=== PATIENT | female | born 1985 | race Caucasian/White ===

== ENCOUNTER 2018-09-17 20:16 | Emergency (ER) | payer OTHER ==
[~2018-09-17] VITALS: Ht 175.3 cm; Wt 143.0 kg
[~2018-09-17 20:16] MED LIST: LISD50CA3 PO; METF500T16 PO; METH-37 PO; NAPR-514 PO; NITR100C62 PO; OMEP20CA9 PO
[2018-09-17 21:27] VITALS: BP 121/76
--- NOTE | 2018-09-17 21:37 | PHYS DOC ---
Past History Past Medical History: GERD Past Surgical History: Appendectomy, Other Smoking: Non-smoker Alcohol Use: None Drug Use: None Adult General Chief Complaint Chief Complaint: COUGH [facility] HPI 32-year-old female presents with 2 week history of cough and congestion. She presents tonight because she has had some upper abdominal pain/chest pain that started about 2 and half hours prior to arrival. She describes it as a pinching sensation. It is worse with deep breathing. It is mild without breathing and moderate with breathing. She denies shortness of breath or diaphoresis. She's never had pain like this before so she was concerned came to the emergency room. She has not had a fever at home. She has been coughing quite a bit. She denies any previous cardiac history. Review of Systems Review of Systems Constitutional: Denies fever or chills [] Eyes: Denies change in visual acuity, redness, or eye pain [] HENT: Denies nasal congestion or sore throat [] Respiratory: Cough without shortness of breath [] Cardiovascular: No additional information not addressed in HPI [] GI: Epigastric abdominal pain. No nausea, vomiting, bloody stools or diarrhea [] : Denies dysuria or hematuria [] Musculoskeletal: Denies back pain or joint pain [] Integument: Denies rash or skin lesions [] Neurologic: Denies headache, focal weakness or sensory changes [] Endocrine: Denies polyuria or polydipsia [] All other systems were reviewed and found to be within normal limits, except as documented in this note. Allergies Allergies Allergies Coded Allergies Type Severity Reaction Last Updated Verified lamotrigine Allergy Unknown RASH 04/06/15 Yes amoxicillin Adverse Reaction Intermediate Diarrhea 04/06/15 Yes ampicillin Adverse Reaction Intermediate DIARRHEA 04/06/15 Yes clavulanic acid Adverse Reaction Intermediate Diarrhea 04/06/15 Yes Physical Exam Physical Exam Constitutional: Well developed, obese, well nourished, no acute distress, non- toxic appearance. [] HENT: Normocephalic, atraumatic, bilateral external ears normal, oropharynx moist, no oral exudates, nose normal. [] Eyes: PERRLA, EOMI, conjunctiva normal, no discharge. [] Neck: Normal range of motion, no tenderness, supple, no stridor. [] Cardiovascular:Heart rate regular rhythm, no murmur [] Lungs & Thorax: Bilateral breath sounds clear to auscultation [] Abdomen: Bowel sounds normal, soft, no tenderness, no masses, no pulsatile masses. [] Skin: Warm, dry, no erythema, no rash. [] Back: No tenderness, no CVA tenderness. [] Extremities: No tenderness, no cyanosis, no clubbing, ROM intact, no edema. [] Neurologic: Alert and oriented X 3, normal motor function, normal sensory function, no focal deficits noted. [] Psychologic: Affect normal, judgement normal, mood normal. [] EKG EKG Sinus rhythm, rate 72, normal axis, no ST elevation or depression.[] Radiology/Procedures Radiology/Procedures [] Impressions: Examination: CHEST PA LATERAL History: Cough, epigastric pain Comparison/Correlation: 04/06/2016 two-view chest x-ray exam Findings: PA and lateral views of chest were obtained. Heart size and pulmonary vasculature are normal. No infiltrate or pleural effusion. No pneumothorax. Bony structures are unremarkable. Surgical clips involve the upper abdomen. Impression: No active disease. Electronically signed by: Alee Murrieta MD (09/17/2018 9:35 PM) [facility] DICTATED AND SIGNED BY: ALEE MURRIETA MD DATE: 09/17/182133 CC: WENDY VU DO; PCP,NO ~ Course & Med Decision Making Course & Med Decision Making Pertinent Labs and Imaging studies reviewed. (See chart for details) Patient's chest x-ray is unremarkable. Her labs are unremarkable. Her troponin is negative. Her EKG is unremarkable. The patient just having some musculoskeletal discomfort with coughing. She is stable for discharge at this time. [] Dragon Disclaimer Dragon Disclaimer This electronic medical record was generated, in whole or in part, using a voice recognition dictation system. Departure Departure: Impression: Primary Impression: Viral URI with cough Additional Impression: Chest wall pain Disposition: HOME, SELF-CARE Condition: STABLE Referrals: PCP,RASHIDA (PCP) Patient Instructions: Chest Wall Pain, [id number], Upper Respiratory Infection, Adult, [id number] Problem Qualifiers WENDY VU DO Sep 17, 2018 21:37
[2018-09-17 21:46] LABS: BASO % 1 % (0-3); EOS # 0.5 x10^3/uL (0.0-0.7); EOS % 5 % (0-3); HEMATOCRIT 35.8 % (36.0-47.0); HEMOGLOBIN 11.6 g/dL (12.0-15.5); LYMPH # 3.8 x10^3/uL (1.0-4.8); LYMPH % 42 % (24-48); MEAN CORPUSCULAR HEMOGLOBIN 26 pg (25-35); MEAN CORPUSCULAR HGB CONC 33 g/dL (31-37); MEAN CORPUSCULAR VOLUME 80 fL (79-100); MONO # 0.5 x10^3/uL (0.0-1.1); MONO % 6 % (0-9); NEUT # 4.2 x10^3uL (1.8-7.7); NEUT % 46 % (31-73); PLATELET COUNT 393 x10^3/uL (140-400); RED BLOOD COUNT 4.45 x10^6/uL (3.50-5.40); RED CELL DISTRIBUTION WIDTH 14.3 % (11.5-14.5); WHITE BLOOD COUNT 9.1 x10^3/uL (4.0-11.0)
[2018-09-17 22:02] LABS: ALBUMIN 3.6 g/dL (3.4-5.0); ALBUMIN/GLOBULIN RATIO 0.8 (1.0-1.7); CALCIUM 9.4 mg/dL (8.5-10.1); CREATININE 0.7 mg/dL (0.6-1.0); POTASSIUM 3.8 mmol/L (3.5-5.1); TOTAL BILIRUBIN 0.2 mg/dL (0.2-1.0); TOTAL PROTEIN 8.1 g/dL (6.4-8.2)
--- NOTE | 2018-09-19 15:59 | EKG ---
[address] [address] Test Date: 2018-09-17 Test Time: 20:25:39 Pat Name: ALISHA CANELA Department: Room: Gender: F Optics Engineer: : 1985 Requested By: WENDY VU Order Number: [id number] Reading MD: Measurements Intervals [place] Rate: 72 P: 47 GA: 164 QRS: 63 QRSD: 90 T: 42 QT: 382 QTc: 420 Interpretive Statements SINUS RHYTHM QRS(T) CONTOUR ABNORMALITY CONSIDER ANTEROSEPTAL MYOCARDIAL DAMAGE POSSIBLY ABNORMAL ECG RI6.01 Unconfirmed report No previous ECG available for comparison
== END 2018-09-17 22:25 | disposition home or self-care (01) ==
LOC: ER 20:16
DX: J06.9 Acute upper respiratory infection, unspecified (principal); B97.89 Other viral agents as the cause of diseases classified elsewhere; R07.89 Other chest pain; K21.9 Gastro-esophageal reflux disease without esophagitis; Z88.1 Allergy status to other antibiotic agents; Z88.8 Allergy status to other drugs, medicaments and biological substances
CPT/HCPCS: 36415; 71046; 80053; 83690; 84484; 85025; 93005; 99284

== ENCOUNTER 2019-04-28 20:34 | Emergency (ER) | payer OTHER ==
[~2019-04-28] VITALS: Ht 175.3 cm; Wt 143.0 kg
[~2019-04-28 20:34] MED LIST changes: +OMEP20CA10 PO; -OMEP20CA9 PO
[2019-04-28] MEDS ORDERED: IV NORMAL SALINE 1,000ML 1,000 ML IV SCH (21:04)
[2019-04-28] MEDS ORDERED: ONDANSETRON PF 4 MG/2 ML VIAL. IV ONE (21:15)
--- NOTE | 2019-04-28 21:26 | PHYS DOC ---
Past History Past Medical History: Anemia, UTI Past Surgical History: Appendectomy, Cholecystectomy, Gastric Bypass, Other Smoking: Non-smoker Alcohol Use: None Drug Use: None Adult General Chief Complaint Chief Complaint: ABDOMINAL PAIN HPI HPI Patient is a 33 year old female who presents with complaint of abdominal pain, nausea, and vomiting. Patient states that her symptoms started earlier this evening. Patient was seen and underwent an EGD at the [facility] location earlier today. Patient has had history of Geri-en-Y surgery with a revision surgery completed approximately 5 weeks ago. During the procedure, patient's mother notes that they stated they removed to surgical clips from her stomach but found no other significant findings at that time. Patient notes that she has been having sharp pains in her upper abdomen with nausea and vomiting. She also notes that she was found to have urinary tract infection on routine urinalysis done earlier today and states that she is prescribed an antibiotic for treatment. She has not started on this medication at this time. Notes that the pain is sharp and radiates along her upper abdomen. Denies any fever. Has not taken any medications at this time for her symptoms. Review of Systems Review of Systems Constitutional: Denies fever or chills [] Eyes: Denies change in visual acuity, redness, or eye pain [] HENT: Denies nasal congestion or sore throat [] Respiratory: Denies cough or shortness of breath [] Cardiovascular: No additional information not addressed in HPI [] GI: Denies abdominal pain, nausea, vomiting, bloody stools or diarrhea [] : Denies dysuria or hematuria [] Musculoskeletal: Denies back pain or joint pain [] Integument: Denies rash or skin lesions [] Neurologic: Denies headache, focal weakness or sensory changes [] Endocrine: Denies polyuria or polydipsia [] All other systems were reviewed and found to be within normal limits, except as documented in this note. Current Medications Current Medications Current Medications Medications (Trade) Dose Ordered Sig/Michelle Start Time Stop Time Status Last Admin Dose Admin Fentanyl Citrate (Fentanyl 2ml Vial) 50 mcg PRN Q15MIN PRN 04/28/19 21:15 04/29/19 21:14 Ondansetron HCl (Zofran) 4 mg 1X ONCE 04/28/19 21:15 04/28/19 21:16 DC Sodium Chloride 1,000 ml @ 1,000 mls/hr Q1H 04/28/19 21:04 04/28/19 22:03 Allergies Allergies Allergies Coded Allergies Type Severity Reaction Last Updated Verified acetaminophen Allergy Unknown 04/28/19 Yes codeine Allergy Unknown 04/28/19 Yes lamotrigine Allergy Unknown RASH 04/06/15 Yes tramadol Allergy Unknown 04/28/19 Yes amoxicillin Adverse Reaction Intermediate Diarrhea 04/06/15 Yes ampicillin Adverse Reaction Intermediate DIARRHEA 04/06/15 Yes clavulanic acid Adverse Reaction Intermediate Diarrhea 04/06/15 Yes Physical Exam Physical Exam Constitutional: Alert, afebrile, appears in moderate discomfort. [] HENT: Normocephalic, atraumatic, bilateral external ears normal, oropharynx moist, no oral exudates, nose normal. [] Eyes: PERRLA, EOMI, conjunctiva normal, no discharge. [] Neck: Normal range of motion, no tenderness, supple, no stridor. [] Cardiovascular:Heart rate regular rhythm, no murmur [] Lungs & Thorax: Bilateral breath sounds clear to auscultation [] Abdomen: Bowel sounds normal, soft, epigastric tenderness to palpation, mild guarding, no rebound tenderness, no masses, no pulsatile masses. [] Skin: Warm, dry, no erythema, no rash. [] Back: No tenderness, no CVA tenderness. [] Extremities: No tenderness, no cyanosis, no clubbing, ROM intact, no edema. [] Neurologic: Alert and oriented X 3, normal motor function, normal sensory function, no focal deficits noted. [] Current Patient Data Vital Signs Vital Signs Date Time Temp Pulse Resp B/P (MAP) Pulse Ox O2 Delivery O2 Flow Rate FiO2 04/28/19 20:43 99.7 83 16 100 Room Air Lab Results Laboratory Tests Test 04/28/19 20:40 04/28/19 21:30 04/28/19 21:40 Urine Collection Type Unknown Urine Color Yellow Urine Clarity Hazy Urine pH 6.0 Urine Specific [place] >=1.030 Urine Protein 30 mg/dl Urine Glucose (UA) Neg mg/dL Urine Ketones (Stick) Neg mg/dL Urine Blood Large Urine Nitrite Neg Urine Bilirubin Neg Urine Urobilinogen Dipstick 1 mg/dL Urine Leukocyte Esterase Small Urine RBC >40 /HPF Urine WBC 20-40 /HPF Urine Squamous Epithelial Cells Occ /LPF Urine Bacteria Many /HPF Urine Mucus Slight /LPF White Blood Count 7.4 x10^3/uL Red Blood Count 4.48 x10^6/uL Hemoglobin 11.1 g/dL Hematocrit 34.5 % Mean Corpuscular Volume 77 fL Mean Corpuscular Hemoglobin 25 pg Mean Corpuscular Hemoglobin Concent 32 g/dL Red Cell Distribution Width 16.6 % Platelet Count 364 x10^3/uL Neutrophils (%) (Auto) 39 % Lymphocytes (%) (Auto) 46 % Monocytes (%) (Auto) 7 % Eosinophils (%) (Auto) 8 % Basophils (%) (Auto) 1 % Neutrophils # (Auto) 2.8 x10^3uL Lymphocytes # (Auto) 3.4 x10^3/uL Monocytes # (Auto) 0.5 x10^3/uL Eosinophils # (Auto) 0.6 x10^3/uL Basophils # (Auto) 0.1 x10^3/uL Sodium Level 142 mmol/L Potassium Level 3.6 mmol/L Chloride Level 106 mmol/L Carbon Dioxide Level 25 mmol/L Anion Gap 11 Blood Urea Nitrogen 11 mg/dL Creatinine 0.7 mg/dL Estimated GFR (Cockcroft-Gault) 96.4 BUN/Creatinine Ratio 16 Glucose Level 86 mg/dL Calcium Level 9.1 mg/dL Total Bilirubin 0.3 mg/dL Aspartate Amino Transf (AST/SGOT) 18 U/L Alanine Aminotransferase (ALT/SGPT) 14 U/L Alkaline Phosphatase 117 U/L Total Protein 7.7 g/dL Albumin 3.5 g/dL Albumin/Globulin Ratio 0.8 Lipase 108 U/L Bedside Urine HCG, Qualitative hcg negative Current Medications Medications (Trade) Dose Ordered Sig/Michelle Route PRN Reason Start Time Stop Time Status Last Admin Dose Admin Fentanyl Citrate (Fentanyl 2ml Vial) 50 mcg PRN Q15MIN PRN IV PAIN GREATER THAN 3/10 04/28/19 21:15 04/29/19 21:14 04/28/19 21:46 Sodium Chloride 1,000 ml @ 1,000 mls/hr Q1H IV 04/28/19 21:04 04/28/19 22:03 DC 04/28/19 21:46 Ondansetron HCl (Zofran) 4 mg 1X ONCE IV 04/28/19 21:15 04/28/19 21:16 DC 04/28/19 21:46 Iohexol (Omnipaque 300 Mg/ml) 75 ml 1X ONCE IV 04/28/19 23:15 04/28/19 23:16 DC 04/28/19 23:29 Info (Do NOT chart on this entry -- for MONITORING) 1 each PRN DAILY PRN MC SEE COMMENTS 04/28/19 23:15 04/30/19 23:14 Ceftriaxone Sodium 1 gm/ Sodium Chloride 50 ml @ 100 mls/hr 1X ONCE IV 04/29/19 00:00 04/29/19 00:29 UNV 04/29/19 00:04 Ceftriaxone Sodium (Rocephin) 1 gm STK-MED ONCE .ROUTE 04/28/19 23:58 04/28/19 23:59 DC Sodium Chloride 50 ml @ As Directed STK-MED ONCE .ROUTE 04/28/19 23:59 04/28/19 23:59 DC EKG EKG Not performed[] Radiology/Procedures Radiology/[place] [address] IMAGING REPORT Signed PATIENT: ALISHA CANELA ACCOUNT: [id number] : 1985 LOCATION: ER AGE: 33 SEX: F EXAM STATUS: REG ER ORD. PHYSICIAN: ALEX BAUTISTA MD REASON: Abdominal pain now, endoscopy done earlier today PROCEDURE: ACUTE ABDOMEN SERIES Exam: Acute abdominal series INDICATION: Abdominal pain TECHNIQUE: Frontal view of the chest with upright and supine views of the abdomen. Comparisons: None FINDINGS: The cardiomediastinal silhouette and pulmonary vessels are within normal limits. The lung and pleural spaces are clear. Air and stool are seen throughout the colon to the level of the rectum in a nonobstructive bowel gas pattern. No free air. No suspicious masses or calcifications. Visualized osseous structures are unremarkable. IMPRESSION: 1. No acute cardiopulmonary process. 2. Nonobstructive bowel gas pattern. Electronically signed by: Wilma Rincon MD (04/28/2019 10:44 PM) [facility] DICTATED AND SIGNED BY: WILMA RINCON MD DATE: 04/28/19 5525 CC: ALEX BAUTISTA MD; KATE BUSH ~ [address] [address] IMAGING REPORT Signed PATIENT: ALISHA CANELA ACCOUNT: [id number] : 1985 LOCATION: ER AGE: 33 SEX: F EXAM STATUS: REG ER ORD. PHYSICIAN: ALEX BAUTISTA MD REASON: upper abdominal pain, hx of Geri-en-Y surgery, EGD today PROCEDURE: CT ABD PELV W/ IV CONTRST ONLY EXAM: CT ABDOMEN/PELVIS WITH CONTRAST. HISTORY: Abdominal pain after endoscopy. TECHNIQUE: Computed tomography of the abdomen and pelvis was performed after the intravenous administration of iodinated contrast. COMPARISON: 11/15/2010. FINDINGS: Lung windows through the visualized portions of the bases reveal no abnormality. Bone windows reveal no suspicious lesions. There is a bone island in the left superior acetabulum. There are changes of gastric bypass procedure. There is a small hiatal hernia. There is no small bowel obstruction. Interval gallbladder fatty infiltration is noted along the falciform ligament. The pancreas, adrenal glands, kidneys and spleen are unremarkable. A prominent mesenteric lymph node in the right lower quadrant measures 9 mm. Another is in the root of the mesentery measure up to 1.5 x 1.1 cm on image 37. There are no pathologically enlarged retroperitoneal or pelvic lymph nodes. A small amount of free pelvic fluid may be physiologic or reactive. The appendix is surgically absent. Postprocedural changes are noted within the anterior abdominal wall. There is no drainable collection. IMPRESSION: 1. Small hiatal hernia status post gastric bypass. No evidence of obstruction. 2. Prominent mesenteric lymph nodes measure up to 1.5 cm. These are likely reactive. Follow-up could be performed if there is persistent concern. *One or more of the following individualized dose reduction techniques were utilized for this examination: 1. Automated exposure control. 2. Adjustment of the mA and/or kV according to patient size. 3. Use of iterative reconstruction technique. Electronically signed by: Matt Nichols MD (04/28/2019 11:46 PM) [facility] DICTATED AND SIGNED BY: TYLER NICHOLS MD DATE: 04/28/19 8266 CC: ALEX BAUTISTA MD; KATE BUSH ~ [] Course & Med Decision Making Course & Med Decision Making Pertinent Labs and Imaging studies reviewed. (See chart for details) Patient was given IV fluids, Zofran, and fentanyl in the emergency department. Initial lab work shows evidence of urinary tract infection, however blood work appears unremarkable at this time. Patient's abdominal x-rays show no intestinal obstruction. Patient did have recurrence of pain after initial treatment with fentanyl. CT imaging was obtained which showed no sign of acute perforation or other acute findings. Patient's condition appears stable at this time. The patient was administered Compazine and Benadryl for treatment of nausea, however patient is tolerating by mouth intake at this time. The patient is appropriate for discharge and recommended outpatient follow-up in one to 2 days with her bariatric surgeon. Advised the patient to be sure to fill the antibiotic prescription that was written for her by her GI doctor and advised to continue on this at home for treatment of urinary tract infection. Was given dose of IV Rocephin in the emergency department prior to discharge. Advised return to the emergency department for any worsening symptoms. Patient and mother voiced understanding and agreement with treatment plan. Dragon Disclaimer Dragon Disclaimer This electronic medical record was generated, in whole or in part, using a voice recognition dictation system. Departure Departure: Impression: Primary Impression: Abdominal pain Additional Impressions: Nausea & vomiting Urinary tract infection Disposition: 01 HOME, SELF-CARE Condition: IMPROVED Referrals: KATE BUSH (PCP) Patient Instructions: Abdominal Pain (Nonspecific), Nausea and Vomiting Additional Instructions: Call your bariatric surgeon in the morning for follow-up in the next 1-2 days. Return to the emergency department for any worsening symptoms. Problem Qualifiers Primary Impression: Abdominal pain Abdominal location: epigastric Qualified Codes: R10.13 - Epigastric pain Additional Impressions: Nausea & vomiting Vomiting type: unspecified Vomiting Intractability: non-intractable Qualified Codes: R11.2 - Nausea with vomiting, unspecified Urinary tract infection Urinary tract infection type: site unspecified Hematuria presence: with hematuria Qualified Codes: N39.0 - Urinary tract infection, site not s pecified; R31.9 - Hematuria, unspecified ALEX BAUTISTA MD Apr 28, 2019 21:26
[2019-04-28 21:44] LABS: CLARITY,URINE HAZY; COLOR,URINE YELLOW
[2019-04-28 21:45] LABS: BACTERIA,URINE MANY /HPF (0-FEW); BILIRUBIN,URINE NEG (NEG); GLUCOSE,URINE NEG (NEG); NITRITE,URINE NEG (NEG); RBC,URINE >40 /HPF (0-2); SQUAMOUS EPITHELIAL CELL,UR OCC /LPF; UROBILINOGEN,URINE 1 mg/dL (0.2 mg/dL); WBC,URINE 20-40 /HPF (0-4)
[2019-04-28 21:51] LABS: BASO # 0.1 x10^3/uL (0.0-0.2); BASO % 1 % (0-3); EOS # 0.6 x10^3/uL (0.0-0.7); EOS % 8 % (0-3); HEMATOCRIT 34.5 % (36.0-47.0); HEMOGLOBIN 11.1 g/dL (12.0-15.5); LYMPH # 3.4 x10^3/uL (1.0-4.8); LYMPH % 46 % (24-48); MEAN CORPUSCULAR HEMOGLOBIN 25 pg (25-35); MEAN CORPUSCULAR HGB CONC 32 g/dL (31-37); MEAN CORPUSCULAR VOLUME 77 fL (79-100); MONO # 0.5 x10^3/uL (0.0-1.1); MONO % 7 % (0-9); NEUT # 2.8 x10^3uL (1.8-7.7); NEUT % 39 % (31-73); PLATELET COUNT 364 x10^3/uL (140-400); RED BLOOD COUNT 4.48 x10^6/uL (3.50-5.40); RED CELL DISTRIBUTION WIDTH 16.6 % (11.5-14.5); WHITE BLOOD COUNT 7.4 x10^3/uL (4.0-11.0)
[2019-04-28 22:04] LABS: ALBUMIN 3.5 g/dL (3.4-5.0); ALBUMIN/GLOBULIN RATIO 0.8 (1.0-1.7); CALCIUM 9.1 mg/dL (8.5-10.1); CREATININE 0.7 mg/dL (0.6-1.0); GFR 96.4; POTASSIUM 3.6 mmol/L (3.5-5.1); TOTAL BILIRUBIN 0.3 mg/dL (0.2-1.0); TOTAL PROTEIN 7.7 g/dL (6.4-8.2)
--- NOTE | 2019-04-28 22:47 | RAD ---
Exam: Acute abdominal series INDICATION: Abdominal pain TECHNIQUE: Frontal view of the chest with upright and supine views of the abdomen. Comparisons: None FINDINGS: The cardiomediastinal silhouette and pulmonary vessels are within normal limits. The lung and pleural spaces are clear. Air and stool are seen throughout the colon to the level of the rectum in a nonobstructive bowel gas pattern. No free air. No suspicious masses or calcifications. Visualized osseous structures are unremarkable. IMPRESSION: 1. No acute cardiopulmonary process. 2. Nonobstructive bowel gas pattern. Electronically signed by: Wilma Chambers MD (04/28/2019 10:44 PM) [facility]
[2019-04-28] MEDS ORDERED: CONTRAST GIVEN MC PRN (23:15)
[2019-04-28] MEDS ORDERED: IOHEXOL 300 MG/ML 75 ML VIAL. IV ONE (23:15)
--- NOTE | 2019-04-28 23:49 | RAD ---
EXAM: CT ABDOMEN/PELVIS WITH CONTRAST. HISTORY: Abdominal pain after endoscopy. TECHNIQUE: Computed tomography of the abdomen and pelvis was performed after the intravenous administration of iodinated contrast. COMPARISON: 11/15/2010. FINDINGS: Lung windows through the visualized portions of the bases reveal no abnormality. Bone windows reveal no suspicious lesions. There is a bone island in the left superior acetabulum. There are changes of gastric bypass procedure. There is a small hiatal hernia. There is no small bowel obstruction. Interval gallbladder fatty infiltration is noted along the falciform ligament. The pancreas, adrenal glands, kidneys and spleen are unremarkable. A prominent mesenteric lymph node in the right lower quadrant measures 9 mm. Another is in the root of the mesentery measure up to 1.5 x 1.1 cm on image 37. There are no pathologically enlarged retroperitoneal or pelvic lymph nodes. A small amount of free pelvic fluid may be physiologic or reactive. The appendix is surgically absent. Postprocedural changes are noted within the anterior abdominal wall. There is no drainable collection. IMPRESSION: 1. Small hiatal hernia status post gastric bypass. No evidence of obstruction. 2. Prominent mesenteric lymph nodes measure up to 1.5 cm. These are likely reactive. Follow-up could be performed if there is persistent concern. *One or more of the following individualized dose reduction techniques were utilized for this examination: 1. Automated exposure control. 2. Adjustment of the mA and/or kV according to patient size. 3. Use of iterative reconstruction technique. Electronically signed by: Matt Nichols MD (04/28/2019 11:46 PM) [facility]
[2019-04-28] MEDS ORDERED: cefTRIAXone SODIUM 1 GM VIAL ONE (23:58)
[2019-04-28] MEDS ORDERED: IV NORMAL SALINE 50ML 50 ML ONE (23:59)
[2019-04-29] MEDS ORDERED: ONDA4TAB12 PO (00:24)
[2019-04-29] MEDS ORDERED: diphenhydrAMINE 50 MG/ML VIAL IVP ONE (00:30)
[2019-04-29] MEDS ORDERED: PROCHLORPERAZINE 10 MG/2 ML VIAL. IV ONE (00:30)
[2019-04-29 00:48] VITALS: BP 120/65
== END 2019-04-29 00:50 | disposition home or self-care (01) ==
LOC: ER 20:34
DX: N39.0 Urinary tract infection, site not specified (principal); R11.2 Nausea with vomiting, unspecified; R31.9 Hematuria, unspecified; Z86.2 Personal history of diseases of the blood and blood-forming organs and certain disorders involving the immune mechanism; Z90.89 Acquired absence of other organs; Z90.49 Acquired absence of other specified parts of digestive tract; Z98.84 Bariatric surgery status; Z88.6 Allergy status to analgesic agent; Z88.5 Allergy status to narcotic agent; Z88.1 Allergy status to other antibiotic agents; Z88.8 Allergy status to other drugs, medicaments and biological substances
CPT/HCPCS: 36415; 74022; 74177; 80053; 81001; 81025; 83690; 85025; 87086; 96361; 96365; 96374; 96375; 99285; J0696; J0780; J1200; J2405; J3010; Q9967; J7030

== ENCOUNTER → 2020-09-21 | Outpatient (CLI) | payer MEDICAID, OTHER ==
[~2020-09-21] MED LIST changes: -OMEP20CA10 PO; +OMEP20CA16 PO; +ONDA4TAB12 PO
--- NOTE | 2020-09-21 15:58 | RAD ---
Nonvascular left soft tissue ultrasound INDICATION: 34-year-old woman reporting a mass in her left sided upper abdomen. COMPARISON: CT abdomen and pelvis with IV contrast of 04/28/2019 TECHNIQUE: Grayscale ultrasound of the area of patient reported palpable concern was performed with a nd without Valsalva in the longitudinal and transverse orientations. FINDINGS: Ultrasound of the area of palpable concern as reported by the patient reveals no discrete fluid colle ction or mass in the patient's abdominal wall. No change with Valsalva. IMPRESSION: Negative focused ultrasound in the area of patient's reported palpable concern with no demonstrable h ernia on Valsalva or otherwise evidence of a mass. Further imaging if indicated could be pursued with CT. Electronically signed by: Monet Delcid MD (09/21/2020 3:56 PM) [id number]
== END ==
LOC: US 08:36
PROVIDERS: ATTEND Family Medicine
DX: R19.02 Left upper quadrant abdominal swelling, mass and lump (principal)
CPT/HCPCS: 76881

== ENCOUNTER 2020-11-10 08:55 | Emergency (ER) | payer MEDICAID ==
[~2020-11-10] VITALS: Ht 175.3 cm; Wt 142.7 kg
--- NOTE | 2020-11-10 10:01 | PHYS DOC ---
Past History Past Medical History: Anxiety, Diabetes, Other Additional Past Medical Histor: RA Past Surgical History: Appendectomy, Cholecystectomy, , Other Additional Past Surgical Histo: gastric sleeve, gastric bypass Smoking: Non-smoker Alcohol Use: None Drug Use: None General Adult EDM: Chief Complaint: VAGINAL PROBLEM HPI: HPI: Patient is a 34-year-old G6, P5 at 20 weeks gestational age coming in for left lower quadrant abdominal pain that started yesterday while she was walking in the grocery store. States the pain is worse with movement and standing up, better with sitting and rest. States the pain is nonradiating and feels similar to her previous ovarian cyst pain. Patient states she also had a small amount of blood on the toilet paper when wiping this morning. Patient denies any recent intercourse, abdominal injuries. States she otherwise been well as any complications with this other than frequent urinary tract infections that she has been treated with Rocephin for by her primary care provider. She denies any vaginal discharge. Review of Systems: Review of Systems: Constitutional: Denies fever or chills Eyes: Denies change in visual acuity HENT: Denies nasal congestion or sore throat Respiratory: Denies cough or shortness of breath Cardiovascular: Denies chest pain or edema GI: Denies abdominal pain, nausea, vomiting, bloody stools or diarrhea : Denies dysuria Musculoskeletal: Denies back pain or joint pain Integument: Denies rash Neurologic: Denies headache, focal weakness or sensory changes Endocrine: Denies polyuria or polydipsia Lymphatic: Denies swollen glands Psychiatric: Denies depression or anxiety Allergies: Allergies: Allergies Coded Allergies Type Severity Reaction Last Updated Verified acetaminophen Allergy Unknown 11/10/20 Yes codeine Allergy Unknown 11/10/20 Yes lamotrigine Allergy Unknown RASH 11/10/20 Yes tramadol Allergy Unknown 11/10/20 Yes amoxicillin Adverse Reaction Intermediate Diarrhea 11/10/20 Yes ampicillin Adverse Reaction Intermediate DIARRHEA 11/10/20 Yes clavulanic acid Adverse Reaction Intermediate Diarrhea 11/10/20 Yes Physical Exam: PE: Constitutional: Well developed, well nourished, no acute distress, non-toxic ap pearance. [] HENT: Normocephalic, atraumatic, bilateral external ears normal, oropharynx moist, no oral exudates, nose normal. [] Eyes: PERRLA, EOMI, conjunctiva normal, no discharge. [] Neck: Normal range of motion, no tenderness, supple, no stridor. [] Cardiovascular:Heart rate regular rhythm, no murmur [] Lungs & Thorax: Bilateral breath sounds clear to auscultation [] Abdomen: Bowel sounds normal, soft, no tenderness, no masses, no pulsatile masses. [] Skin: Warm, dry, no erythema, no rash. [] Back: No tenderness, no CVA tenderness. [] Extremities: No tenderness, no cyanosis, no clubbing, ROM intact, no edema. [] Neurologic: Alert and oriented X 3, normal motor function, normal sensory function, no focal deficits noted. [] Psychologic: Affect normal, judgement normal, mood normal. [] Current Patient Data: Vital Signs: Vital Signs Date Time Temp Pulse Resp B/P (MAP) Pulse Ox O2 Delivery O2 Flow Rate FiO2 11/10/20 09:04 98.5 69 18 134/86 (102) 98 Room Air EKG: EKG: [] Radiology/Procedures: Radiology/Procedures: EXAM: Ultrasound OB Greater than 14 weeks INDICATION: Reason: LLQ PAIN, VAG BLEEDING / Spl. Instructions: OVARIES NV IN ADNEXAS / History: TECHNIQUE: Real-time obstetrical ultrasound was performed with permanent freeze- frame documentation. COMPARISON: None. FINDINGS: POSITION: Breech HEART RATE: 158 bpm FIORELLA: 14.4 cm PLACENTA: Posterior, not low-lying. CERVICAL LENGTH: 4.5 cm MATERNAL UTERUS: Low anterior uterine wall shows a 4 x 5.6 cm mass, favored to represent uterine contraction. MATERNAL ADNEXA: Limited evaluation of the ovaries. No adnexal mass.. AGE/DATES: Gestational Age by LMP: 20 weeks 0 days Gestation Age by US: 20 weeks 5 days EDC by LMP: 03/30/2021 EDC by US: 03/25/2021 WEIGHT: 354 grams +/- 52 grams PERCENTILE WEIGHT: Not estimated BIOMETRIC PARAMETERS: BPD: 5.0 cm corresponding with 21 weeks 0 days HC: 19.0 cm corresponding with 21 weeks 2 days AC: 16.0 cm corresponding with 21 weeks 1 day FL: 3.0 cm corresponding with 19 weeks 3 days IMPRESSION: 1. Normal OB ultrasound demonstrating a single viable fetus in breech position with posterior placenta and an anterior uterine mass, likely a contraction. No evidence of previa. Estimated gestational age of 20 weeks 5 days and EDC of 03/25/2021. 2. Ovaries not well seen transabdominally.[] Heart Score: C/O Chest Pain: No Risk Factors: Risk Factors: DM, Current or recent (<one month) smoker, HTN, HLP, family history of CAD, obesity. Risk Scores: Score 0 - 3: 2.5% MACE over next 6 weeks - Discharge Home Score 4 - 6: 20.3% MACE over next 6 weeks - Admit for Clinical Observation Score 7 - 10: 72.7% MACE over next 6 weeks - Early Invasive Strategies Course & Med Decision Making: Course & Med Decision Making Pertinent Labs and Imaging studies reviewed. (See chart for details) Work-up unremarkable, advised to practice pelvic rest and follow-up with her [facility] [employer] [employer] [] Feliciano Disclaimer: Feliciano Disclaimer: This electronic medical record was generated, in whole or in part, using a voice recognition dictation system. Departure Departure: Impression: Primary Impression: Vaginal bleeding before 22 weeks gestation Disposition: ADMITTED INPT THIS HOSP Condition: STABLE Referrals: KATE BUSH (PCP) Patient Instructions: Vaginal Bleeding During , Second Trimester CECILIA PELAYO MD Nov 10, 2020 10:01
[2020-11-10 10:43] LABS: BASO # 0.1 x10^3/uL (0.0-0.2); BASO % 1 % (0-3); EOS # 0.2 x10^3/uL (0.0-0.7); EOS % 2 % (0-3); HEMATOCRIT 38.9 % (36.0-47.0); HEMOGLOBIN 13.1 g/dL (12.0-15.5); LYMPH # 2.7 x10^3/uL (1.0-4.8); LYMPH % 29 % (24-48); MEAN CORPUSCULAR HEMOGLOBIN 29 pg (25-35); MEAN CORPUSCULAR HGB CONC 34 g/dL (31-37); MEAN CORPUSCULAR VOLUME 87 fL (79-100); MONO # 0.4 x10^3/uL (0.0-1.1); MONO % 4 % (0-9); NEUT # 5.9 x10^3uL (1.8-7.7); NEUT % 64 % (31-73); PLATELET COUNT 295 x10^3/uL (140-400); RED CELL DISTRIBUTION WIDTH 21.1 % (11.5-14.5); WHITE BLOOD COUNT 9.2 x10^3/uL (4.0-11.0)
[2020-11-10 10:56] LABS: CALCIUM 8.9 mg/dL (8.5-10.1); CREATININE 0.5 mg/dL (0.6-1.0); GFR 141.2; POTASSIUM 3.8 mmol/L (3.5-5.1)
[2020-11-10 11:02] LABS: ALBUMIN 2.9 g/dL (3.4-5.0); ALBUMIN/GLOBULIN RATIO 0.7 (1.0-1.7); TOTAL BILIRUBIN 0.3 mg/dL (0.2-1.0); TOTAL PROTEIN 7.2 g/dL (6.4-8.2)
[2020-11-10 11:09] LABS: BILIRUBIN,URINE NEG (NEG); CLARITY,URINE HAZY; COLOR,URINE YELLOW; GLUCOSE,URINE NEG (NEG); NITRITE,URINE NEG (NEG)
[2020-11-10 11:10] LABS: BACTERIA,URINE 0 /HPF (0-FEW); SQUAMOUS EPITHELIAL CELL,UR MANY /LPF
[2020-11-10 12:13] LABS: PLT ESTIMATE ADEQUATE (ADEQUATE)
--- NOTE | 2020-11-10 12:15 | RAD ---
EXAM: Ultrasound OB Greater than 14 weeks INDICATION: Reason: LLQ PAIN, VAG BLEEDING / Spl. Instructions: OVARIES NV IN ADNEXAS / History: TECHNIQUE: Real-time obstetrical ultrasound was performed with permanent freeze-frame documentation. COMPARISON: None. FINDINGS: POSITION: Breech HEART RATE: 158 bpm FIORELLA: 14.4 cm PLACENTA: Posterior, not low-lying. CERVICAL LENGTH: 4.5 cm MATERNAL UTERUS: Low anterior uterine wall shows a 4 x 5.6 cm mass, favored to represent uterine cont raction. MATERNAL ADNEXA: Limited evaluation of the ovaries. No adnexal mass.. AGE/DATES: Gestational Age by LMP: 20 weeks 0 days Gestation Age by US: 20 weeks 5 days EDC by LMP: 03/30/2021 EDC by US: 03/25/2021 WEIGHT: 354 grams +/- 52 grams PERCENTILE WEIGHT: Not estimated BIOMETRIC PARAMETERS: BPD: 5.0 cm corresponding with 21 weeks 0 days HC: 19.0 cm corresponding with 21 weeks 2 days AC: 16.0 cm corresponding with 21 weeks 1 day FL: 3.0 cm corresponding with 19 weeks 3 days IMPRESSION: 1. Normal OB ultrasound demonstrating a single viable fetus in breech position with posterior placent a and an anterior uterine mass, likely a contraction. No evidence of previa. Estimated gestational ag e of 20 weeks 5 days and EDC of 03/25/2021. 2. Ovaries not well seen transabdominally. Electronically signed by: Monet Delcid MD (11/10/2020 12:13 PM) [id number]
[2020-11-10 12:33] LABS: ANISOCYTOSIS PRESENT
[2020-11-10 12:34] LABS: MICROCYTOSIS PRESENT
[2020-11-10 12:35] LABS: OVALOCYTES FEW
[2020-11-10 12:36] LABS: POLYCHROMASIA SLIGHT; TEAR DROP CELLS PRESENT
[2020-11-10 12:41] LABS: SCHISTOCYTES OCC
[2020-11-10 12:50] VITALS: BP 145/84
== END 2020-11-10 12:52 | disposition admitted as inpatient to this hospital (09) ==
LOC: ER 08:55
DX: O46.92 Antepartum hemorrhage, unspecified, second trimester (principal); R10.32 Left lower quadrant pain; R35.0 Frequency of micturition; F41.9 Anxiety disorder, unspecified; E11.9 Type 2 diabetes mellitus without complications; Z90.89 Acquired absence of other organs; Z90.49 Acquired absence of other specified parts of digestive tract; Z98.890 Other specified postprocedural states; Z88.1 Allergy status to other antibiotic agents; Z88.5 Allergy status to narcotic agent; Z88.8 Allergy status to other drugs, medicaments and biological substances; Z3A.21 21 weeks gestation of pregnancy
CPT/HCPCS: 76815; 80053; 81001; 82947; 85025; 87491; 87591; 99284; Q0111

== ENCOUNTER → 2021-11-02 | Outpatient (CLI) | payer MEDICAID ==
[2021-02-27 14:40] VITALS: BP 114/74
--- NOTE | 2021-11-02 10:47 | RAD ---
EXAM: XR SACRUM AND COCCYX 2+VIEWS, XR PELVIS 1-2V 11/02/2021 10:16 AM CLINICAL INDICATION: Slipped and fell, pain COMPARISON: None TECHNIQUE: AP view the pelvis. 3 views of the sacrum and coccyx FINDINGS: Pelvis: No acute fracture. Alignment is normal. Hips, pubic symphysis, and sacroiliac joints are norm al. An intrauterine device is seen in the pelvis. Sacrum and coccyx: There is bowing along the anterior cortex of the S5 segment of the sacrum suspicio us for an acute fracture. Sacroiliac joints are normal. An intrauterine device is seen in the pelvis. IMPRESSION: 1. Suspect minimally displaced fracture of the S5 segment of the sacrum. 2. No other acute osseous abnormality of the pelvis. Electronically signed by: Rocio Beckwith MD (11/02/2021 10:45 AM) [id number]
== END ==
LOC: RAD 10:00
PROVIDERS: ATTEND Internal Medicine
DX: R10.2 Pelvic and perineal pain (principal); W00.9XXA Unspecified fall due to ice and snow, initial encounter
CPT/HCPCS: 72170; 72220

== ENCOUNTER → 2021-12-17 | Outpatient (CLI) | payer MEDICAID ==
[2021-02-27 14:40] VITALS: BP 114/74
--- NOTE | 2021-12-17 17:01 | RAD ---
PQRS Compliance Statement: One or more of the following individualized dose reduction techniques were utilized for this examinat ion: 1. Automated exposure control 2. Adjustment of the mA and/or kV according to patient size 3. Use of iterative reconstruction technique CT ABDOMEN+PELVIS WO Clinical Indication: Reason: RT SIDE BACK PAIN. HEMATRUIA, BILATERAL KIDNEY STONES / Spl. Instruction s: / History: Comparison: CT abdomen and pelvis with contrast, April 28, 2019. Technique: Helical CT imaging of the abdomen and pelvis is performed without IV or oral contrast. Findings: Evaluation of solid organs and bowel is limited without oral and IV contrast, decreasing sensitivity for detection of abnormal findings. The lung bases are clear. Cardiac size is normal. Cholecystectomy. The liver, spleen, pancreas, and adrenal glands are normal. The abdominal aorta is n ormal caliber. There is no hydronephrosis. There is a punctate nonobstructing left renal calculus. Th ere is a cortical calcification of the right kidney. There are postsurgical changes of gastric bypass. There is no small bowel obstruction. There is appen dectomy. There is no colon wall thickening. Mildly enlarged mesenteric lymph nodes are unchanged, for example image 63. The urinary bladder is normal. There is an IUD in the uterus. No pelvic free fluid. There is a small left ovary functional cyst. There is no pelvic free fluid. There is air in the vagina. No acute bone abnormality. IMPRESSION: 1. No acute abdominal or pelvic abnormality. 2. Nonobstructing left renal calculus. 3. Mildly enlarged mesenteric lymph nodes are unchanged probably chronic. Electronically signed by: Pio Agosto MD (12/17/2021 4:59 PM) [facility]
== END ==
LOC: CT 16:15
PROVIDERS: ATTEND Family Medicine
DX: N20.0 Calculus of kidney (principal); R59.0 Localized enlarged lymph nodes; N83.292 Other ovarian cyst, left side; Z97.5 Presence of (intrauterine) contraceptive device; Z98.84 Bariatric surgery status
CPT/HCPCS: 74176